=== PATIENT | female | born 1995 | race African-American/Black ===

== ENCOUNTER 2019-04-12 07:37 | Inpatient (IN) | payer OTHER ==
[~2019-04-12] VITALS: Ht 157.5 cm; Wt 64.4 kg
[~2019-04-12 07:37] MED LIST: AMOX500C2 PO; DOCU-216 PO; FER325 PO; LEVO500T10 PO; PANT40TA4 PO
[2019-04-12 07:56] VITALS: Ht 157.5 cm; Wt 64.4 kg
[2019-04-12] MEDS ORDERED: ONDANSETRON 4 MG TAB PO ONE (08:00)
[2019-04-12] MEDS ORDERED: POTASSIUM CHLORIDE (SR) 20 MEQ TAB PO STA (09:11)
[2019-04-12] MEDS ORDERED: ACETAMINOPHEN 500 MG TAB PO STA (09:29)
[2019-04-12] MEDS: LACTATED RINGER'S 1,000 ML IV SCH ×4 (09:48→20:11)
[2019-04-12] MEDS ORDERED: CYCLOBENZAPRINE 10 MG TAB PO ONE (12:00)
--- NOTE | 2019-04-12 15:42 | CONS ---
Assessment/Plan Assessment/Plan Hospital Course (Demo Recall) Assessment and plan: 23-year-old female who is presently 21 weeks and 5 days , G2, P1 history, sickle cell criteria, hypertension, who comes in to the [facility] department today because of nausea vomiting, headache symptoms. #Nausea vomiting/headaches: Suspect symptoms likely secondary to the patient's . Could be some component of hyperemesis gravidarum occurring. Doubt there is any signs of any current sickle cell crisis or acute pain disorder presently going on. -Continue current care per primary [facility] team including IV fluids, pain control medications -Would recommend checking a CBC in the morning given the patient's slightly low hemoglobin levels. At this time would not recommend any blood transfusions until we continue to monitor CBC #Sickle cell: Again patient has history of this, does not appear to be any acute sickle cell symptoms or attack going on presently -Continue current care as recommended above, monitor CBC # HTN: Patient states she does not take any medications for this -Monitor for now We will continue to follow along with you Consultation Date/Type/Reason Admit Date/Time Apr 12, 2019 at 15:10 Date/Time of Note DATE: 04/12/19 TIME: 15:38 Hx of Present Illness 23-year-old female who is presently 21 weeks and 5 days , G2, P1 history, sickle cell criteria, hypertension, who comes in to the [facility] department today because of nausea vomiting symptoms. Patient also complaining of some blurry vision and decreased p.o. intake, and also has noticed some decreased movement. All the symptoms have been going on for the last 5 to 7 days per patient. Patient tried "holding her breath" at home at times to help relieve her symptoms. She did state during her first she had similar symptoms at that time, but not this severe. Denies any upper or lower GI bleeding, fevers or chills, chest pain, arthralgias, myalgias, or shortness of breath, no loss of consciousness. No diarrhea or constipation. Her lab work today shows hemoglobin of 7.8 and hematocrit in the 27 range. Patient does state having prior episodes of sickle cell crisis and being hospitalized for this, the last episode occurring about 2 months ago where she did require blood transfusion at that time. Past Medical History Medications Current Medications Lactated Ringer's 1,000 ml @ 250 mls/hr Q4H IV Last administered on 04/12/19at 13:40; Admin Dose 250 MLS/HR; Start 04/12/19 at 09:30 Allergies: Coded Allergies: No Known Allergy (Unverified , 04/12/19) Past Surgical History Past Surgical Hx: no surgical history Social History Alcohol Use: none Smoking Status: Never smoker Drug Use: none Exam/Review of Systems Exam Exam General: Lying in bed, no acute distress Neuro: No focal deficit HEENT: Atraumatic, normocephalic. Neck: Supple Chest: nontender Lungs: Clear to auscultation bilaterally. Heart: Normal S1-S2, Regular rhythm and rate. Abdomen: Soft, nondistended, nontender throughout. Extremities: Trace LE edema. Results Result Diagram: 04/12/19 0805 04/12/19 0806 Results 24hrs Laboratory Tests Test 04/12/19 07:45 04/12/19 08:05 04/12/19 08:06 04/12/19 10:30 Urine Color YELLOW Urine Clarity SLIGHTLY CLOUDY A Urine pH 5.0 Urine Specific 1.030 [place] Urine Ketones 2+ H Urine Nitrite NEGATIVE Urine Bilirubin NEGATIVE Urine NEGATIVE Urobilinogen Urine Leukocyte 3+ H Esterase Urine Microscopic 13 H RBC Urine Microscopic 40 H WBC Urine Squamous FEW Epithelial Cells Urine Bacteria FEW A Urine Mucus MANY A Urine Hemoglobin 1+ H Urine Random 253.49 Creatinine Urine 0.08 Protein/Creatinin e Ratio Urine Glucose NEGATIVE Urine Total 22.0 H Protein White Blood Count 7.9 # Red Blood Count 5.11 Hemoglobin 7.8 L Hematocrit 27.2 L Mean Corpuscular 53.2 L Volume Mean Corpuscular 15.3 L Hemoglobin Mean Corpuscular 28.7 L Hemoglobin Concen t Red Cell 21.4 #H Distribution Width Platelet Count 430 #H Mean Platelet 9.3 Volume Immature 0.400 Granulocytes % Neutrophils % 75.8 Lymphocytes % 15.5 Monocytes % 7.3 Eosinophils % 0.4 Basophils % 0.6 Nucleated Red 0.0 Blood Cells % Immature 0.030 Granulocytes # Neutrophils # 6.0 Lymphocytes # 1.2 Monocytes # 0.6 Eosinophils # 0.0 Basophils # 0.1 Nucleated Red 0.0 Blood Cells # Prothrombin Time 13.1 Prothrombin Time 1.0 Ratio INR International 0.98 Normalized Ratio Activated 30.1 Partial Thrombopl ast Time Uric Acid 4.9 Sodium Level 136 Potassium Level 3.2 L Chloride Level 106 Carbon Dioxide 18 L Level Anion Gap 12 Blood Urea 8 Nitrogen Creatinine 0.54 Est Glomerular > 60 Filtrat Rate mL/min Glucose Level 73 Calcium Level 8.9 Total Bilirubin 0.4 Direct Bilirubin 0.00 Indirect 0.4 Bilirubin Aspartate Amino 20 Transf (AST/SGOT) Alanine 12 L Aminotransferase (ALT/SGPT) Alkaline 56 Phosphatase Total Protein 7.3 Albumin 3.7 Globulin 3.60 H Albumin/Globulin 1.02 Ratio Membranes NEGATIVE Rupture Medications Medication Current Medications Lactated Ringer's 1,000 ml @ 250 mls/hr Q4H IV Last administered on 04/12/19at 13:40; Admin Dose 250 MLS/HR; Start 04/12/19 at 09:30 CHERI SCOTT Apr 12, 2019 15:42
--- NOTE | 2019-04-12 16:18 | TRIAGE ---
OB Triage Datetime Report Generated by CPN: 04/12/2019 16:17 Datetime: 04/12/2019 16:00 Stage of : OB Triage Maternal Assessment Level of Consciousness: Keenly Alert, Responsive DTR's/Clonus: DTRs 1+ Headache: Denies Breath Sounds, Left: Clear and Equal Breath Sounds, Right: Clear and Equal Nausea/Vomiting: Hx of Nausea/Vomiting RUQ Epigastric Pain: Denies Labor Evaluation Frequency: NONE Monitor Mode: External Resting Tone [place]: Relaxed Pain Assessment Pain Scale: 4 Pain Presence: Constant Pain Type: Ache Pain Location: Head Pain Goal: 3 Pain Relief Measures: Comfort Measures Vaginal Exam Membrane Status: Intact Datetime: 04/12/2019 15:00 Stage of : OB Triage Maternal Assessment Level of Consciousness: Keenly Alert, Responsive DTR's/Clonus: DTRs 1+ Headache: Denies Breath Sounds, Left: Clear and Equal Breath Sounds, Right: Clear and Equal Nausea/Vomiting: Hx of Nausea/Vomiting RUQ Epigastric Pain: Denies Labor Evaluation Frequency: NONE Monitor Mode: External Resting Tone [place]: Relaxed Pain Assessment Pain Scale: 4 Pain Presence: Constant Pain Type: Ache Pain Location: Head Pain Goal: 3 Pain Relief Measures: Comfort Measures Vaginal Exam Membrane Status: Intact Datetime: 04/12/2019 14:00 Stage of : OB Triage Maternal Assessment Level of Consciousness: Keenly Alert, Responsive DTR's/Clonus: DTRs 1+ Headache: Denies Breath Sounds, Left: Clear and Equal Breath Sounds, Right: Clear and Equal Nausea/Vomiting: Hx of Nausea/Vomiting RUQ Epigastric Pain: Denies Labor Evaluation Frequency: NONE Monitor Mode: External Resting Tone [place]: Relaxed Pain Assessment Pain Scale: 5 Pain Presence: Constant Pain Type: Ache Pain Location: Head Pain Goal: 3 Pain Relief Measures: Comfort Measures Vaginal Exam Membrane Status: Intact Datetime: 04/12/2019 13:00 Stage of : OB Triage Maternal Assessment Level of Consciousness: Keenly Alert, Responsive DTR's/Clonus: DTRs 1+ Headache: Denies Breath Sounds, Left: Clear and Equal Breath Sounds, Right: Clear and Equal Nausea/Vomiting: Hx of Nausea/Vomiting RUQ Epigastric Pain: Denies Labor Evaluation Frequency: NONE Monitor Mode: External Resting Tone [place]: Relaxed Pain Assessment Pain Scale: 5 Pain Presence: Constant Pain Type: Ache Pain Location: Head Pain Goal: 3 Pain Relief Measures: Comfort Measures Vaginal Exam Membrane Status: Intact Datetime: 04/12/2019 12:00 Stage of : OB Triage Maternal Assessment Level of Consciousness: Keenly Alert, Responsive DTR's/Clonus: DTRs 1+ Headache: Denies Breath Sounds, Left: Clear and Equal Breath Sounds, Right: Clear and Equal Nausea/Vomiting: Hx of Nausea/Vomiting RUQ Epigastric Pain: Denies Labor Evaluation Frequency: NONE Monitor Mode: External Resting Tone [place]: Relaxed Heart Rate FHR Baseline Rate: 145 Monitor Mode: Doppler Pain Assessment Pain Scale: 7 Pain Presence: Constant Pain Type: Ache Pain Location: Head Pain Goal: 3 Pain Relief Measures: Comfort Measures Vaginal Exam Membrane Status: Intact Datetime: 04/12/2019 11:00 Stage of : OB Triage Maternal Assessment Level of Consciousness: Keenly Alert, Responsive DTR's/Clonus: DTRs 1+ Headache: Denies Breath Sounds, Left: Clear and Equal Breath Sounds, Right: Clear and Equal Nausea/Vomiting: Hx of Nausea/Vomiting RUQ Epigastric Pain: Denies Labor Evaluation Frequency: NONE Monitor Mode: External Resting Tone [place]: Relaxed Pain Assessment Pain Scale: 7 Pain Presence: Constant Pain Type: Ache Pain Location: Head Pain Goal: 3 Pain Relief Measures: Comfort Measures Vaginal Exam Membrane Status: Intact Datetime: 04/12/2019 10:40 Stage of : OB Triage Datetime: 04/12/2019 10:37 Stage of : OB Triage Pain Assessment Pain Scale: 5 Pain Presence: Constant Pain Type: Ache Pain Location: Head Pain Goal: 3 Datetime: 04/12/2019 10:00 Stage of : OB Triage Maternal Assessment Level of Consciousness: Keenly Alert, Responsive DTR's/Clonus: DTRs 1+ Headache: Denies Breath Sounds, Left: Clear and Equal Breath Sounds, Right: Clear and Equal Nausea/Vomiting: Hx of Nausea/Vomiting RUQ Epigastric Pain: Denies Labor Evaluation Frequency: NONE Monitor Mode: External Resting Tone [place]: Relaxed Pain Assessment Pain Scale: 7 Pain Presence: Constant Pain Type: Ache Pain Location: Head Pain Goal: 3 Pain Relief Measures: Comfort Measures Vaginal Exam Membrane Status: Intact Datetime: 04/12/2019 09:00 Stage of : OB Triage Maternal Assessment Level of Consciousness: Keenly Alert, Responsive DTR's/Clonus: DTRs 1+ Headache: Denies Breath Sounds, Left: Clear and Equal Breath Sounds, Right: Clear and Equal Nausea/Vomiting: Hx of Nausea/Vomiting RUQ Epigastric Pain: Denies Labor Evaluation Frequency: NONE Monitor Mode: External Resting Tone [place]: Relaxed Pain Assessment Pain Scale: 3 Pain Presence: Constant Pain Type: Ache Pain Location: Head Pain Goal: 7 Pain Relief Measures: Comfort Measures Vaginal Exam Membrane Status: Intact Datetime: 04/12/2019 08:03 Stage of : OB Triage Datetime: 04/12/2019 08:01 Maternal Assessment Level of Consciousness: Keenly Alert, Responsive DTR's/Clonus: DTRs 1+ Headache: Denies Blurred Vision: No Respiratory Effort: Unlabored Breath Sounds, Left: Clear and Equal Breath Sounds, Right: Clear and Equal Nausea/Vomiting: Hx of Nausea/Vomiting RUQ Epigastric Pain: Denies Facial Edema: None Labor Evaluation Frequency: NONE Monitor Mode: External Resting Tone [place]: Relaxed Pain Assessment Pain Scale: 0 Pain Presence: None/Denies Pain Type: N/A Pain Goal: 3 Vaginal Exam Membrane Status: Intact Datetime: 04/12/2019 07:51 EGA: 23.5 Datetime: 04/12/2019 07:41 Stage of : OB Triage Maternal Assessment Level of Consciousness: Keenly Alert, Responsive DTR's/Clonus: DTRs 1+ Headache: Denies Blurred Vision: No Respiratory Effort: Unlabored Breath Sounds, Left: Clear and Equal Breath Sounds, Right: Clear and Equal Nausea/Vomiting: Denies RUQ Epigastric Pain: Denies Facial Edema: None Labor Evaluation Frequency: APPLIED Monitor Mode: External Resting Tone [place]: Relaxed Heart Rate FHR Baseline Rate: 135 Monitor Mode: Doppler Pain Assessment Pain Scale: 0 Pain Presence: None/Denies Pain Type: N/A Pain Goal: 3 Vaginal Exam Membrane Status: Intact Datetime: 04/12/2019 07:35 Stage of : OB Triage Datetime: 04/12/2019 07:28 Time of Arrival: 04/12/2019 07:28 Arrived By: Wheelchair Arrived From: Home Chief Complaint: PT CAME IN C/O WEAKNESS AND N/V SINCE 3 DAYS AGO AND DFM Movement: Decreased Contractions: Denies/Absent Rupture of Membranes: Denies Vaginal Bleeding: None Vaginal Discharge: Denies Recent Sexual Intercouse: Denies Abdominal Trauma: Not Applicable Patient Complaints: Nausea; Vomiting; Other Additional Patient Complaints: NONE Time Provider Notified: 04/12/2019 07:35 Provider Notified: MILESTONE Initial Plan: CMP, UA, SEGUNDO, ZOFRAN, MONITOR(DOPPLER)
--- NOTE | 2019-04-12 16:30 | HP ---
Date/Time of Note Date/Time of Note DATE: 04/12/19 TIME: 16:30 OB - History Hx of Present Free Text/Dictation History of present illness: 23-year-old G 2P1 at 21 week and 5 day(s) by second trimester ultrasound today presents with nausea, vomiting, headache, abdominal pain. Obstetric history: Vaginal delivery x1 Gynecology: Last menstrual period approximate Past medical history: Sickle cell anemia Surgical history: None Family history: None Social history: negative for tobacco/alcohol/recreational drugs Allergies: No known drug allergies Medications: vitamins Physical exam Vitals: Stable General: No apparent distress Cardiovascular: Regular rate and rhythm Pulmonary: Clear to auscultation bilaterally Abdomen: Gravid Uterus: At fundus Extremities: Nontender to palpation Psychological: A 6. Alert oriented Assessment/plan: 1. Nausea/vomitingZofran 4 mg every 3 hours as needed. IV fluid LR 2. Hypokalemiapotassium chloride 40 mEq 3. Chronic hypertensionpreeclamptic labs 4. Sicke cell anemiahematology consult. cbc in am. 5. Blurry visionhospitalist consult 6. History of drug use 7. Abdominal pain-flexiril admit for 24 hour observation MFM consulted Past Family/Social History * Past Medical, Surgical, Family and Obstetric Histories reviewed from chart. OB Admission Exam Last 72 hours Lab Results CBC & BMP 04/12/19 08:05 04/12/19 08:06 Liver Function Test 04/12/19 08:06 Alanine Aminotransferase (ALT/SGPT) 12 L Albumin 3.7 Alkaline Phosphatase 56 Aspartate Amino Transf (AST/SGOT) 20 Direct Bilirubin 0.00 Total Protein 7.3 EVELYN FRYE MD Apr 12, 2019 16:30
[2019-04-13] MEDS: LACTATED RINGER'S 1,000 ML IV SCH ×4 (04:57→22:51)
[2019-04-13] MEDS ORDERED: ONDANSETRON 4 MG INJ ONE (06:18)
[2019-04-13] MEDS: ONDANSETRON 4 MG INJ IV PRN ×2 (06:22→18:42)
[2019-04-13] MEDS ORDERED: SOD CHLORIDE 0.9% 250 ML IV* ONE (09:40)
--- NOTE | 2019-04-13 12:42 | CONS ---
Consult Date/Type/Reason Admit Date/Time Apr 12, 2019 at 15:10 Initial Consult Date Date/Time of Note DATE: 04/13/19 TIME: 12:40 Subjective Patient found with low hemoglobin today presently getting blood transfusion. No signs of any upper or lower GI bleeding, or other bleeding. Otherwise no acute events overnight. Objective Vitals Intake and Output 04/12/19 04/12/19 04/13/19 1515:00 23:00 07:00 IntakeIntake Total 1550 ml 500 ml 1250 ml OutputOutput Total 1300 ml 300 ml 300 ml BalanceBalance 250 ml 200 ml 950 ml Exam General: Lying in bed, no acute distress Neuro: No focal deficit HEENT: Atraumatic, normocephalic. Neck: Supple Chest: nontender Lungs: Clear to auscultation bilaterally. Heart: Normal S1-S2, Regular rhythm and rate. Abdomen: Soft, nondistended, nontender throughout. Extremities: Trace LE edema. Results/Medications Result Diagram: 04/13/19 0604 04/12/19 0806 Results 24 hrs Laboratory Tests Test 04/13/19 06:04 White Blood Count 6.0 # Red Blood Count 4.15 L Hemoglobin 6.4 *L Hematocrit 22.2 L Mean Corpuscular Volume 53.5 L Mean Corpuscular Hemoglobin 15.4 L Mean Corpuscular Hemoglobin Concent 28.8 L Red Cell Distribution Width 20.7 H Platelet Count 331 # Mean Platelet Volume 9.3 Immature Granulocytes % 0.300 Neutrophils % 63.5 Segmented Neutrophils % (Manual) 69 Band Neutrophils % (Manual) 2 Lymphocytes % 25.0 Lymphocytes % (Manual) 22 Reactive Lymphocytes % (Manual) 2 H Monocytes % 9.9 Monocytes % (Manual) 5 Eosinophils % 0.8 Eosinophils % (Manual) 4 Basophils % 0.5 Basophils % (Manual) 1 Nucleated Red Blood Cells % 0.0 Immature Granulocytes # 0.020 Neutrophils # 3.8 Neutrophils # (Manual) 4.1 Band Neutrophils # 0.1 Lymphocytes (Manual) 1.3 Lymphocytes # 1.5 Reactive Lymphocytes # 0.1 H Monocytes # 0.6 Monocytes # (Manual) 0.3 Eosinophils # 0.1 Basophils # 0.0 Basophils # (Manual) 0.0 Nucleated Red Blood Cells # 0.0 Pathologist Review (Hematology) YES Platelet Estimate NORMAL Giant Platelets 3 H Polychromasia Hypochromasia 2+ Poikilocytosis 2+ Anisocytosis 2+ Microcytosis 2+ Target Cells 1+ Ovalocytes 1+ Medications Current Medications Lactated Ringer's 1,000 ml @ 125 mls/hr Q8H IV Last administered on 04/13/19at 04:57; Admin Dose 125 MLS/HR; Start 04/12/19 at 16:03 Ondansetron HCl (Zofran Inj) 4 mg Q6H PRN IV NAUSEA AND/OR VOMITING Last administered on 04/13/19at 06:22; Admin Dose 4 MG; Start 04/13/19 at 06:30 Prenat Multivit/ Media/Instructional Designer/Iron/Folic Ac () 1 tab DAILY PO ; Start 04/13/19 at 10:30 Assessment/Plan Hospital Course (Demo Recall) Assessment and plan: 23-year-old female who is presently 21 weeks and 5 days , G2, P1 history, sickle cell criteria, hypertension, who comes in to the [facility] department today because of nausea vomiting, headache symptoms. #Nausea vomiting/headaches: Symptoms slowly improving. Suspect symptoms likely secondary to the patient's . Could be some component of hyperemesis gravidarum occurring. Doubt there is any signs of any current sickle cell crisis presently going on. -Continue current care per primary [facility] team including IV fluids, pain control medications -Would recommend checking a CBC in the morning given the patient's slightly low hemoglobin levels. At this time would not recommend any blood transfusions until we continue to monitor CBC #Sickle cell: Hemoglobin today 6.4. Likely secondary to iron deficiency anemia. Presently patient does not appear to be in any acute sickle cell attack presently -Follow-up post transfusion CBC in the morning, continue current care as recommended above, vitamin # HTN: BP appears to be stable. Patient states she does not take any medications for this -Monitor for now We will continue to follow along with you CHERI SCOTT Apr 13, 2019 12:42
[2019-04-13] MEDS: PRENATAL VITAMIN PO SCH (13:10)
--- NOTE | 2019-04-13 14:15 | QN ---
Documentation Comment 23-year-old G 2P1 at 21 week and 5 day(s) by second trimester ultrasound today presents with nausea, vomiting, headache, abdominal pain. 23 yo ,A case of Sickle cell Anemia and abdominal pain,Patient is Anemic and is receiving PRBC as per Hospitalist Vs stable Gen NAD Abd soft NT ND Genitalia Deferred --->Management as Per Hospitalist team --->perinatology consult --->Close Observation CHANDNI MOORE M.D. Apr 13, 2019 14:15
[2019-04-13 15:24] VITALS: BP 109/63; PULSE 68; RESP 18
[2019-04-13 20:03] VITALS: BP 102/58; PULSE 75; RESP 17
[2019-04-14] MEDS: LACTATED RINGER'S 1,000 ML IV SCH ×5 (00:03→18:48)
[2019-04-14 02:33] VITALS: BP 111/58; PULSE 68; RESP 20
[2019-04-14 07:57] VITALS: BP 111/66; PULSE 76; RESP 18
[2019-04-14] MEDS: PRENATAL VITAMIN PO SCH (08:31)
[2019-04-14] MEDS: ONDANSETRON 4 MG INJ IV PRN ×2 (08:36→18:55)
[2019-04-14 13:40] VITALS: BP 103/53; PULSE 77; RESP 20
[2019-04-14 20:00] VITALS: BP 104/53; PULSE 71; RESP 20
[2019-04-14] MEDS ORDERED: DIPHENHYDRAMINE 25 MG CAP PO ONE (21:00)
[2019-04-15 02:00] VITALS: BP 106/66; PULSE 65; RESP 20
--- NOTE | 2019-04-15 02:59 | CONS ---
DATE OF ADMISSION: 04/12/2019 DATE OF CONSULTATION: 04/14/2019 HISTORY OF PRESENT ILLNESS: The patient is a 23-year-old G2, P1 at 21 weeks, admitted after having n ausea, vomiting and some blurry vision. 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 She has care at an outside clinic. Her first was complicated for episodes of dizzine ss and some urinary tract infection. In addition, she had preeclampsia which led to delivery full te rm with . For this visit, she states that she has been feeling weak overall, episodes of di zziness and nausea, vomiting persisting so far throughout the . She currently does feel better. She has received 2 units of packed red blood cells and that helped. She is admitted under internal medicine currently. In terms of recommendations, this is a general recommendation for sickle cell disease in . Sickle cell disease in increases the risk of pyelonephritis. UA and culture every trimeste r is necessary. Her symptoms again are secondary to anemia. I am not sure how she was before the but anemi a most likely existed before the and carried on and is with the . It has worsened to the point of dizziness and lack of energy. Iron therapy and Colace in case of constipation would be recommended. She needs to be at the clinic that has access to a perinatologist because this is a very high risk pr egnancy. testing twice weekly at 32 weeks. For her nausea, vomiting, Zofran is a safe medication an d she can use it up to every 8 hours, 4 to 8 mg as needed. In addition, small meals and less fat wou ld help her to be able to keep the food in. Sickle cell disease increases the risk of hypertension and preeclampsia and as she had it with the la st , she has a higher risk of having it with this , so blood pressure control and m onitoring is very important. Baseline 24-hour urine for protein and complete metabolic panel would b e necessary. counseling is also necessary. growth ultrasounds every 4 to 6 weeks are also important a nd also after discharge, she needs to be set up for an anatomy scan with the perinatologist. Delivery no later than 39 weeks with a repeat , or if any other complication happens, then u nder perinatologist supervision, it can be further discussed. She is currently homeless and Social service has been consulted. It is extremely important for the charlette hannah to have some disposition as her disease and , they are not conducive to this life out side a home in stable home. Preeclampsia precautions and symptoms as well as symptoms of pyelonephritis were discussed with the charlette hannah so she can return to the hospital as soon as and if they develop. In terms of her discharge, this is at the hospitalist's discretion. Dictated By: SIMI ELIZABETH MD ST/NTS Conf#: [id number] DID#: [id number] CC: EVELYN FRYE MD;*EndCC*
[2019-04-15] MEDS: LACTATED RINGER'S 1,000 ML IV SCH ×2 (03:47→11:29)
[2019-04-15 07:15] VITALS: BP 96/52; PULSE 61; RESP 18
[2019-04-15] MEDS: PRENATAL VITAMIN PO SCH (09:37)
[2019-04-15] MEDS: ONDANSETRON 4 MG INJ IV PRN (09:39)
[2019-04-15 14:52] VITALS: BP 94/53; PULSE 82; RESP 20
--- NOTE | 2019-04-15 16:53 | PDOCDIS ---
Discharge Instructions CONDITION [id number] Patient Condition: [id number] Good HOME CARE INSTRUCTIONS: [id number] Diet Instructions: [id number] Regular ACTIVITY: [id number] Activity Restrictions: [id number] No Restrictions FOLLOW UP/APPOINTMENTS Follow-up Plan Follow-up with your OB as scheduled KASANDRA CLAYTON Apr 15, 2019 16:53
--- NOTE | 2019-04-15 16:57 | DS ---
Date/Time of Note Date/Time of Note DATE: 04/15/19 TIME: 16:53 Discharge Summary Admission/Discharge Info Admit Date/Time Apr 12, 2019 at 15:10 Discharge Date/Time April 15, 2019 Discharge Diagnosis 1. Nausea and vomiting with headaches secondary to intrauterine gestation- resolved Patient has no further headaches and is tolerating a p.o. diet 2. History of sickle cell Patient with no acute crisis 3. Anemia secondary to sickle cell and Patient is status post 1 unit of packed red blood cells 4. Hypertension secondary to distress-resolved BP is currently stable and patient is not on any medications for hypertension 5. Hypokalemia Repleted Patient Condition: Good Hospital Course Patient is a 23-year-old female with history of sickle cell disease who is currently . Patient presented with nausea vomiting as well as headache, symptoms were likely secondary to . Patient was found to be anemic and hypokalemic, patient was transfused 1 unit of packed red blood cells and potassium was repleted. Urine culture showed only contamination, patient symptoms did resolve and was stable for DC to follow-up with her OB as an outpatient. On the day of discharge patient was stable. Home Meds No Active Prescriptions or Reported Meds Follow-up Plan Follow-up with your OB as scheduled Primary Care Provider Care Physician No Primary Time spent on discharge: > 30 minutes KASANDRA CLAYTON Apr 15, 2019 16:57
--- NOTE | 2019-04-15 17:53 | QN ---
Documentation Comment Patient denies any complaint. Denies any nausea, vomiting, abdominal pain, leaking of fluid, vaginal bleeding or decreased movement. Reports feeling good movement. Denies any shortness of breath or chest pain. Denies any dizziness or lightheadedness. Denies any vaginal bleeding. Patient reports current symptoms was the same symptoms when she has sickle cell crisis. Physical examination: General appearance alert and oriented x4 does not appear to be in any acute distress Abdomen: Soft, gravid, fundal height correlate with gestational age, no tenderness, no rebound tenderness, no guarding, no rigidity Extremities: No calf tenderness, no click no edema no cord palpable Discussed nursing staff to check the heart tone from labor and delivery prior to discharge home Laboratory Tests Test 04/13/19 19:00 04/14/19 05:49 04/14/19 06:23 04/15/19 11:47 Urine Random 44.02 mg/dl Creatinine Urine 24 hrs Collection Duration Urine Total 2175 ml/24hrs Volume 24 Hours Urine 24 hrs Creatinine Timed Creatinine 123.1 mls/min Clearance Urine Total 2175 mls Volume (Protein) Urine Total 369.8 mg/24hrs Protein 24 Hour White Blood 6.5 10^3/ul Count Red Blood Count 4.54 10^6/ul Hemoglobin 7.4 g/dl Hematocrit 25.0 % Mean 55.1 fl Corpuscular Volume Mean 16.3 pg Corpuscular Hemoglobin Mean 29.6 g/dl Corpuscular Hemoglobin Conc ent Red Cell 23.5 % Distribution Width Platelet Count 307 10^3/UL Mean Platelet 8.9 fl Volume Immature 0.500 % Granulocytes % Neutrophils % 65.8 % Lymphocytes % 21.2 % Monocytes % 10.3 % Eosinophils % 1.7 % Basophils % 0.5 % Nucleated Red 0.0 /100WBC Blood Cells % Immature 0.030 10^3/ul Granulocytes # Neutrophils # 4.3 10^3/ul Lymphocytes # 1.4 10^3/ul Monocytes # 0.7 10^3/ul Eosinophils # 0.1 10^3/ul Basophils # 0.0 10^3/ul Nucleated Red 0.0 10^3/ul Blood Cells # Lab Scanned BLOOD TRANSFUS REFERENCE Report [facility] [id number] Assessment: IUP at 24 + weeks Abdominal pain, nausea, headache, history of sickle cell anemia Symptoms related to sickle cell crisis. admitted by medicine. I discussed with the patient increased risk of sickle cell crisis in in case of dehydration and UTI. Precaution was given. Advised about adequate hydration. Recommended the patient to immediately report to triage in case of have any UTI symptoms, infection dehydration or sickle cell symptoms. Symptoms resolved after hydration and treatment. No evidence of labor, no evidence of PPROM. Has been feeling good movement Anemia, sickle cell as well as thalassemia Homelessness. Status post social media marketing specialist consultation Patient reports has a care in the clinic across [facility] Advised the patient to have a follow-up with primary OB clinic within 48 hours after discharge from the hospital Recommended the patient to take iron and vitamin regularly strict labor Precautions and kick count discussed with the patient. She verbalized understanding importance of follow-up will be carried during this current to decrease risk of complications of Urine tox positive for marijuana. Risk of substance abuse in discussed with patient and precaution was given Patient verbalized understanding. DORIE BOSS MD Apr 15, 2019 17:53
--- NOTE | 2019-04-15 17:55 | DS ---
Date/Time of Note Date/Time of Note DATE: 04/15/19 TIME: 17:54 Discharge Summary Admission/Discharge Info Admit Date/Time Apr 12, 2019 at 15:10 Discharge Date/Time April 15, 2019 Discharge Diagnosis 1. Nausea and vomiting with headaches secondary to intrauterine gestation- resolved Patient has no further headaches and is tolerating a p.o. diet 2. History of sickle cell Patient with no acute crisis 3. Anemia secondary to sickle cell and Patient is status post 1 unit of packed red blood cells 4. Hypertension secondary to distress-resolved BP is currently stable and patient is not on any medications for hypertension 5. Hypokalemia Repleted Patient Condition: Good Consults Perinatology consultation Procedures Admission, Hydration,. Hospital Course History of present illness: 23-year-old G 2P1 at 21 week and 5 day(s) by second trimester ultrasound today presents with nausea, vomiting, headache, abdominal pain. Patient has history of Sickle cell anemia. Reported her symtoms related to prior Sicke cell crisis. She was admitted to medicine service. Please see the discharge summary from Medicine team Home Meds No Active Prescriptions or Reported Meds Follow-up Plan Follow-up with your OB as scheduled Primary Care Provider Care Physician No Primary Pending Labs Laboratory Tests Test 04/15/19 11:47 Lab Scanned Report [facility] [id number] DORIE BOSS MD Apr 15, 2019 17:55
--- NOTE | 2019-04-17 16:14 | RADRPT ---
Vent Rate: 75 bpm RR Interval: 796 msec [place] Interval: 133 msec QRS Duration: 88 msec QT Interval: 363 msec QTC Interval: 407 msec P-R-T [place]: 66 - 60 - 15 degrees Sinus rhythm...normal P axis, V-rate 50- 99 Low voltage, precordial leads...precordial leads <1.0mV Electronically Signed By: Frank Hernandes
== END 2019-04-15 18:05 | disposition home or self-care (01) | DRG 832 ==
LOC: OBT 07:37 → L-D 07:39 → OBT 15:10 → L-D 15:10 → 2NE 04-13 14:43
PROVIDERS: ADMIT Obstetrics & Gynecology; ATTEND Obstetrics & Gynecology
DX: O21.8 Other vomiting complicating pregnancy (principal); O16.2 Unspecified maternal hypertension, second trimester; O99.012 Anemia complicating pregnancy, second trimester; Z3A.21 21 weeks gestation of pregnancy
CPT/HCPCS: 36415; 36430; 76815; 76816; 76817; 80053; 80307; 81001; 81003; 82570; 82575; 84112; 84156; 84560; 85025; 85610; 85730; 86850; 86900; 86901; 86920; 87086; 87210; 93005; 96360; 96361; G0463; J2405; J7040; J7120; P9016

== ENCOUNTER 2019-06-16 08:29 | Outpatient (CLI) | payer OTHER ==
[~2019-06-16] VITALS: Ht 157.5 cm; Wt 67.4 kg
[~2019-06-16 08:29] MED LIST changes: -AMOX500C2 PO; -DOCU-216 PO; -FER325 PO; -LEVO500T10 PO; -PANT40TA4 PO; +PNV11TAB PO
[2019-06-16 09:06] VITALS: BP 109/67; PULSE 71; RESP 18; Ht 157.5 cm; Wt 67.4 kg
[2019-06-16] MEDS ORDERED: ONDANSETRON 4 MG INJ IV STA (09:15)
[2019-06-16] MEDS ORDERED: LACTATED RINGER'S 1,000 ML IV SCH (09:30)
[2019-06-16] MEDS ORDERED: TERBUTALINE 1 MG/ML INJ SC ONE (12:00)
== END 2019-06-16 14:35 | disposition left against medical advice (07) ==
LOC: OBT 08:29 → L-D 08:31 → OBT 14:35
PROVIDERS: ATTEND Obstetrics & Gynecology
DX: Z53.21 Procedure and treatment not carried out due to patient leaving prior to being seen by health care provider (principal)
CPT/HCPCS: 36415; 76815; 76817; 76818; 80307; 81001; 82731; 87086; J2405; J3105; J7120; Z7500; G0463